=== PATIENT | female | born 1980 | race Caucasian/White ===

== ENCOUNTER 2017-12-27 16:30 | Emergency (ER) | payer OTHER ==
[~2017-12-27] VITALS: Ht 165.1 cm; Wt 77.1 kg
[~2017-12-27 16:30] MED LIST: DOXYCYCLINE 10100 MG PO; FIORINAL 50-321 EACH PO; INDERAL LA80 MG; INDERAL80 MG; LIDOCAINE 22 %/30 GM TOP; NORCO 5-325 TA1 EACH PO; ORTHO TRI-CYCL1 EAC1; PRENATAL; [UNRECOGNIZED DRUG - OTHER]
[2017-12-27 16:58] LABS: URINE BILIRUBIN NEGATIVE (Negative); URINE BLOOD NEGATIVE (Negative); URINE CLARITY CLEAR; URINE COLOR YELLOW; URINE GLUCOSE-RANDOM NEGATIVE (Negative); URINE KETONES NEGATIVE (Negative); URINE LEUKOCYTES-REFLEX NEGATIVE (Negative); URINE NITRITE-REFLEX NEGATIVE (Negative); URINE PROTEIN NEGATIVE (Negative); URINE SPECIFIC GRAVITY 1.015 (1.005-1.030); URINE UROBILINOGEN 0.2 E.U./dl (0.2-1.0)
[2017-12-27] MEDS ORDERED: NORFLEX100 MG PO (17:09)
[2017-12-27] MEDS ORDERED: VOLTAREN GEL 1100 G2 TOP (17:09)
[2017-12-27] MEDS ORDERED: MEDROLDOSEPACK PO (17:09)
[2017-12-27 17:24] VITALS: BP 124/80
== END 2017-12-27 17:26 | disposition home or self-care (01) ==
LOC: M.ERS 16:30
PROVIDERS: Physician Assistant
DX: M54.5 Low back pain (principal); G43.909 Migraine, unspecified, not intractable, without status migrainosus; M79.7 Fibromyalgia; Z88.1 Allergy status to other antibiotic agents; Z90.49 Acquired absence of other specified parts of digestive tract; Z88.8 Allergy status to other drugs, medicaments and biological substances; Z87.891 Personal history of nicotine dependence